=== PATIENT | male | born 1980 | race Hispanic/Latino ===

== ENCOUNTER 2019-05-15 19:10 | Emergency (ER) | payer SELFPAY ==
--- NOTE | 2019-05-15 19:37 | Emergency Department Report ---
Blank Doc - Documentation Documentation: 38-year-old male that presents with right sided lower back pain wit radiation to right leg. This initial assessment/diagnostic orders/clinical plan/treatment(s) is/are subject to change based on patient's health status, clinical progression and re- assessment by fellow clinical providers in the ED. Further treatment and workup at subsequent clinical providers discretion. Patient/guardians urged not to elope from the ED as their condition may be serious if not clinically assessed and managed. Initial orders include: 1- Patient sent to [facility] for further evaluation and treatment 2- xrays
--- NOTE | 2019-05-15 20:16 | XRay Report ---
EXAMINATION: Lumbar spine radiograph series, 3 views, 05/15/2019 CLINICAL INFORMATION: Low back pain. No history of trauma COMPARISON: None. FINDINGS: There is normal alignment of the lumbar vertebral bodies. Vertebral body height is well concepción ntained. There is moderate degenerative disc space narrowing at the L5-S1 level. IMPRESSION: Moderate degenerative change at the L5-S1 level. Signer Name: Deloris Stroud MD Signed: 05/15/2019 8:12 PM Workstation Name: [id number]
[2019-05-15] MEDS ORDERED: KETOROLAC 30 MG/1 ML INJ IM ONE (22:11)
--- NOTE | 2019-05-15 22:16 | Emergency Department Report ---
ED General Adult HPI - General Chief complaint: Extremity Injury, Lower Stated complaint: NUMBNESS AND PAIN IN RIGHT LEG, SORE THROAT Time Seen by Provider: 05/15/19 19:35 Source: patient Mode of arrival: Ambulatory Limitations: No Limitations - History of Present Illness Initial comments: This is a 38-year-old male who presents to the emergency room with right lower extremity pain and a sore throat. Patient reports a history of chronic back pain from injury several years ago. Patient states he's never experienced any radiating pain down his right leg like he is experiencing today. Patient reports pain to the right lower extremity for 1 week that is worse with weightbearing. He describes the pain as a numbness from his buttocks to his right foot. He also reports waking up this morning with a sore throat. He denies a cough, fever, chills, palpitations, shortness of breath, chest pain, swelling, bruising, paresthesias, change in urinary or bowel pattern. Onset/Timin -: week(s) Location: lower extremity (right) Severity scale (0 -10): 4 Quality: burning, aching Consistency: intermittent Improves with: none Worsens with: eating, movement Associated Symptoms: denies other symptoms Treatments Prior to Arrival: none - Related Data Previous Rx's Medication Instructions Recorded Last Taken Type Ibuprofen [Motrin 800 MG tab] 800 mg PO Q8HR PRN #20 tablet 05/15/19 Unknown Rx Methocarbamol [Robaxin] 500 mg PO BID PRN #15 tablet 05/15/19 Unknown Rx methylPREDNISolone [Medrol 4MG 4 mg PO DAILY #1 tab.ds.pk 05/15/19 Unknown Rx DOSEPAK (21 tabs)] Allergies Allergy/AdvReac Type Severity Reaction Status Date / Time No Known Allergies Allergy Verified 05/15/19 19:25 ED Review of Systems ROS: Stated complaint: NUMBNESS AND PAIN IN RIGHT LEG, SORE THROAT Other details as noted in HPI Constitutional: denies: chills, fever ENT: throat pain. denies: ear pain Respiratory: denies: cough, shortness of breath, wheezing Cardiovascular: denies: chest pain, palpitations Gastrointestinal: denies: abdominal pain, nausea, diarrhea Musculoskeletal: arthralgia (right leg pain). denies: back pain, joint swelling Skin: denies: rash, lesions Neurological: denies: headache, weakness, paresthesias Psychiatric: denies: anxiety, depression ED Past Medical Hx - Social History Smoking Status: Current Every Day Smoker Substance Use Type: Alcohol - Medications Home Medications: Home Medications Medication Instructions Recorded Confirmed Last Taken Type Ibuprofen [Motrin 800 MG tab] 800 mg PO Q8HR PRN #20 tablet 05/15/19 Unknown Rx Methocarbamol [Robaxin] 500 mg PO BID PRN #15 tablet 05/15/19 Unknown Rx methylPREDNISolone [Medrol 4MG 4 mg PO DAILY #1 tab.ds.pk 05/15/19 Unknown Rx DOSEPAK (21 tabs)] ED Physical Exam - General Limitations: No Limitations General appearance: alert, in no apparent distress - ENT ENT exam: Present: mucous membranes moist, TM's normal bilaterally, normal external ear exam. Absent: normal orophraynx (erythematous and bulging tonsils, no exudate, uvula midline ) - Neck Neck exam: Present: normal inspection - Respiratory Respiratory exam: Present: normal lung sounds bilaterally. Absent: respiratory distress - Cardiovascular Cardiovascular Exam: Present: regular rate, normal rhythm. Absent: systolic murmur, diastolic murmur, rubs, gallop - GI/Abdominal GI/Abdominal exam: Present: soft, normal bowel sounds - Expanded Lower Extremity Exam Right Hip exam: Present: normal inspection, full ROM Upper Leg exam: Present: normal inspection, full ROM Knee exam: Present: normal inspection, full ROM Lower Leg exam: Present: normal inspection, full ROM Ankle exam: Present: normal inspection, full ROM Foot/Toe exam: Present: normal inspection, full ROM Neuro vascular tendon exam: Present: no vascular compromise Gait: Positive: observed and limited by pain - Back Exam Back exam: Present: full ROM, other (positive straight leg test on her right). Absent: muscle spasm, paraspinal tenderness, vertebral tenderness, rash noted - Neurological Exam Neurological exam: Present: alert, oriented X3, normal gait - Psychiatric Psychiatric exam: Present: normal affect, normal mood - Skin Skin exam: Present: warm, dry, intact, normal color. Absent: rash ED Course Vital Signs 05/15/19 05/15/19 05/15/19 19:18 19:26 19:37 Temperature 97.9 F 97.9 F 97.9 F Pulse Rate 87 110 H 110 H Respiratory 18 18 18 Rate Blood Pressure 132/83 132/83 Blood Pressure 132/83 [Right] O2 Sat by Pulse 100 99 99 Oximetry 05/15/19 05/15/19 22:33 23:51 Temperature Pulse Rate 89 Respiratory 16 16 Rate Blood Pressure Blood Pressure 131/86 [Right] O2 Sat by Pulse 16 L Oximetry ED Medical Decision Making - Lab Data Lab Results 05/15/19 Range/Units Unknown Group A Strep Rapid Positive A (Negative) - Radiology Data Radiology results: report reviewed EXAMINATION: Lumbar spine radiograph series, 3 views, 05/15/2019 CLINICAL INFORMATION: Low back pain. No history of trauma COMPARISON: None. FINDINGS: There is normal alignment of the lumbar vertebral bodies. Vertebral body height is well maintained. There is moderate degenerative disc space narrowing at the L5-S1 level. IMPRESSION: Moderate degenerative change at the L5-S1 level. - Medical Decision Making Patient examined by me and stable. Vitals stable. No distress noted. Rapid strep obtained and positive for strep. Given bicillin and toradol once in ER. Positive straight leg test on the right. X-ray of the L-spine shows moderate degenerative change at the L5-S1 level. Sciatica of right leg and streptococcal pharyngitis. Start medrol dose pack, robaxin, and ibuprofen. Discussed plan with patient and he agreed with plan to treat outpatient. Discharged home. Return to work tomorrow. Follow up with PCP in 48-72 hours. Critical care attestation.: If time is entered above; I have spent that time in minutes in the direct care of this critically ill patient, excluding procedure time. ED Disposition Clinical Impression: Acute sore throat, Leg pain, right, Acute streptococcal pharyngitis Sciatica Qualifiers: Laterality: right Qualified Code(s): M54.31 - Sciatica, right side Disposition: - TO HOME OR SELFCARE Is pt being admited?: No Condition: Stable Instructions: Strep Throat (ED), Sciatica (ED), Arthralgia (ED) Additional Instructions: Expect symptoms to improve within 3 or 4 days. There is no need for bed rest or isolation. Use Tylenol or ibuprofen for symptoms of sore throat, headache, and fever. Rest Use ice or heat on affected area for 20 minutes and off for [address] heavy machinery while taking muscle relaxers because they may cause drowsiness. Follow up with Primary Care Provider in 2-3 days.Return to work in 24 hours of taking antibiotics. Follow up with Primary Care Provider in 48-72 hours. Prescriptions: methylPREDNISolone [Medrol 4MG DOSEPAK (21 tabs)] 4 mg PO DAILY #1 tab.ds.pk Ibuprofen [Motrin 800 MG tab] 800 mg PO Q8HR PRN #20 tablet PRN Reason: Pain , Severe (7-10) Methocarbamol [Robaxin] 500 mg PO BID PRN #15 tablet PRN Reason: Muscle Spasm Referrals: [facility] [Outside] - 3-5 Days [facility] [Outside] - 3-5 Days [facility] [Outside] - 3-5 Days Forms: Work/School Release Form(ED) Time of Disposition: 23:17
[2019-05-15] MEDS ORDERED: PENICILLIN G BENZATHINE 1.2 MILLION UNIT/2 ML INJ IM ONE (23:05)
[2019-05-15 23:57] VITALS: BP 131/86
== END 2019-05-15 23:51 | disposition home or self-care (01) ==
LOC: ED 19:10
DX: J02.0 Streptococcal pharyngitis (principal); M54.31 Sciatica, right side; F17.200 Nicotine dependence, unspecified, uncomplicated; Z79.899 Other long term (current) drug therapy
CPT/HCPCS: 72100; 87430; 96372; 99284; J0561; J1885